=== PATIENT | female | born 1960 | race Caucasian/White ===

== ENCOUNTER 2017-11-16 05:27 | Day surgery (SDC) | payer OTHER ==
[~2017-11-16] VITALS: Ht 149.9 cm; Wt 99.8 kg
--- NOTE | ~2017-11-16 | PATH ---
[facility] [address] [place] [address] PATHOLOGY RPT PROCEDURE Name: JOSTIN MOTTA Room #: DEP [facility] M.R.#: [id number] Admission: 11/16/17 Date of : 64 Discharge: 11/16/17 Report #: [id number] Path Case #: [id number] Note [facility] Accession Number: [id number] TESTS RESULT FLAG UNITS REF RANGE LAB Clinician Provided Cytology Information No. of containers..01 Other (Miscellaneous) Source: RUL BRUSH TIP DIAGNOSIS: RUL BRUSH TIP INCONCLUSIVE. SCANT MARKEDLY ATYPICAL CELLS IDENTIFIED ALONG WITH REACTIVE BRONCHIAL EPITHELIAL CELLS AND INFLAMMATORY CELLS. Comment: Few groups of markedly atypical cells are identified. These may represent partially sampled neoplastic cells. [place]: Dr.Christin Lori Cowan. Signed out by: 02 Emi Bo MD, Pathologist NPI- [id number] Performed by: 01 Yasmine Hogue, X Ray Equipment Tester ([facility]) FLAG LEGEND: L-Low Normal,H-High Normal,LL-Alert Low,HH-Alert High <-Panic Low,>-Panic High,A-Abnormal,AA-Critical Abnormal Performed at: [address] [place] [address] Peewee Motta MD, [address] [address] Emi Bo MD, Performed at: [address], [place], [place] [id number] MD Peewee Motta MD Phone: [phone]
--- NOTE | ~2017-11-16 | PATH ---
[facility] [address] [address] PATHOLOGY RPT PROCEDURE Name: JOSTIN MOTTA Room #: [place] [facility].R.#: [id number] Admission: 11/16/17 Date of : 64 Discharge: 11/16/17 Report #: [id number] Path Case #: [id number] Note [facility] Accession Number: [id number] TESTS RESULT FLAG UNITS REF RANGE LAB Clinician Provided Cytology Information No. of containers..01 Other (Miscellaneous) Source: 01 4R NODE PS 1,6,7 DIAGNOSIS: [A] 02 4R NODE EBUS GUIDED FNA POSITIVE FOR MALIGNANT CELLS. PASS 1 AND 6 WITH REACTIVE BRONCHIAL EPITHELIAL CELLS AND BLOOD RESPECTIVELY. PASS 7 WITH MARKEDLY ATYPICAL CELLS PRESENT. NO LYMPHOID TISSUE PRESENT, PLEASE SEE COMMENT. Comment: Examination shows markedly atypical cells with necrosis. The cells show pleomorphism with large nuclei and high nuclear to cytoplasmic ratio. Immunohistochemical stains are performed on the cellblock. Reactivity is present for TTF1 and patchy reactivity is present for Ae1/Ae3 as well as p63. There is no reactivity present for the neuroendocrine marker synaptophysin. Findings may represent a completely effaced lymph node or partially sampled RUL mass sampled and submitted as [id number]. That case is sent for an expert opinion to [facility], [place], [place]. Please see separate report for details. [facility]: Dr. Debbie Cowan, Dr. Ana Guillen and Dr. Jeanie Wong. Findings are discussed with Dr. Christianson at 1:15 pm on 11/21/17. Signed out by: 02 Emi Bo MD, Pathologist NPI- [id number] Performed by: Yasmine Hogue, Web Weaver ([facility]) Gross description: 01 50ML, PINK, CLOUDY /LCS FLAG LEGEND: L-Low Normal,H-High Normal,LL-Alert Low,HH-Alert High <-Panic Low,>-Panic High,A-Abnormal,AA-Critical Abnormal Performed at: 01 [facility] [address] [place] [address] Peewee Motta MD, [address] [address] PATHOLOGY RPT PROCEDURE Name: JOSTIN MOTTA Room #: [place] [facility] Melissa#: [id number] Admission: 11/16/17 Date of : 64 Discharge: 11/16/17 Report #: [id number] Path Case #: [id number] 02 [facility] [place] [address] [facility], [place] [address] Emi Bo MD, Performed at: 01 [facility] [place] [address] [facility] [address], [place], [place] [id number] MD Peewee Motta MD Phone: [phone]
--- NOTE | ~2017-11-16 | PATH ---
[facility] [address] [address] PATHOLOGY RPT PROCEDURE Name: JOSTIN MOTTA Room #: DEP [facility] M.R.#: [id number] Admission: 11/16/17 Date of : 64 Discharge: 11/16/17 Report #: [id number] Path Case #: [id number] [facility] Accession Number: [id number] . 01 Material submitted: . PART A: BIOPSY RUL PART B: BIOPSY RUL MASS . 01 Clinical history: . LUNG MASS . 02 Diagnosis: A. 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 . B. Tissue designated as RUL mass, biopsy: - Strips of benign bronchial epithelium along with inflammatory cells in the background. - Negative for malignancy. QRQ/11/22/2017 . 02 Comment: Examination shows aggregates of tumor cells with ample cytoplasm in a few areas and associated with extensive squamous metaplasia and keratinizing pearls in the overlying bronchial epithelium. Other areas in the tumor show extensive crush artifact associated with necrosis. Immunohistochemical stains are performed on block A1, and the tumor shows membranous reactivity along with faint reactivity within the tumor cells with AE1/AE3 (perla cytokeratin). TTF-1 show reactivity in the squamous metaplastic epithelium, as well as weak reactivity within the tumor cells. P40 as well as P63 show strong nuclear reactivity within a few of the tumor cells. Synaptophysin is non-reactive. CD56 as well as NSE show weak reactivity in rare areas within the tumor cells. Mucicarmine special stain performed on block A1 shows no mucin present within the tumor cells. Overall, tumor cells are showing non-specific features and this tumor may represent a poorly differentiated squamous cell carcinoma, a large cell neuroendocrine carcinoma mixed with the squamous cell carcinoma, or a mixed small cell/combined tumor. The case is sent to [facility], [place], [place], for expert opinion. A refined diagnosis will be issued subsequent to the receipt of the same. . Co-review: Dr. Ana Guillen, Dr. Jeanie Wong and Dr. Debbie Cowan. The case was discussed with Dr. Hermelindo Christianson at 8:59 a.m. on 11/22/17. (IUV:mgr; 11/22/17) . [address] [address] PATHOLOGY RPT PROCEDURE Name: JOSTIN MOTTA Room #: DEP [facility] Chris.Junior.#: [id number] Admission: 11/16/17 Date of : 64 Discharge: 11/16/17 Report #: [id number] Path Case #: [id number] Addendum: . An addendum is issued to render a diagnosis following consultation from the [facility]. Dr. Ana Prieto rendered the following diagnosis: . 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 . Dr. Prieto stated that sections of the right upper lobe lung core biopsy show malignant neoplasm involving the lung parenchyma. In some fragments, the tumor grows into few sheets with a scant to moderate amount of pale eosinophilic to clear cytoplasm. In these areas, there is some irregularity to the nuclear membranes with slight vesicular chromatin and occasional moderately sized nucleoli. Mitotic activity is very brisk. In some other areas, the tumor cells have more scant cytoplasm leading to nuclear molding and crush artifact. This is associated with necrosis and brisk mitotic activity with apoptotic debris. . The provided immunohistochemical stains are reviewed. The malignant cells are positive for keratin AE1/AE3, and show foci of dot-like perinuclear staining. There is patchy staining for CD56 and focal weak staining for TTF-1. Rare cells express p63 and p40. The tumor cells appear negative for synaptophysin and mucicarmine. . Overall, this biopsy appears to show a poorly differentiated carcinoma based on the expression of keratin. In some areas, the cells have more vesicular chromatin with moderately sized nucleoli and a moderate amount of cytoplasm, resembling non-small cell morphology. However, we feel that there are areas associated with necrosis and crush artifact. Rare nuclear molding is prominent, associated with dark even chromatin, more in keeping with a small cell morphology. 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 Correlation with clinical and radiographic features is recommended (please see supplemental report from [facility] ([id number]). . These findings were discussed with Dr. Hermelindo Christianson on 11/29/17 at 2:30 p.m. (ADRIANE:; 11/29/17) . This case was prepared and proofread by Dr. Ana Guillen and electronically released by Dr. Saeid Grijalva. QRQ/11/29/2017 Addendum Electronically Signed by Saeid Grijalva M.D. . 02 Electronically signed: . Emi Bo MD, Pathologist NPI- [id number] [address] [address] PATHOLOGY RPT PROCEDURE Name: JOSTIN MOTTA Room #: DEP [facility].#: [id number] Admission: 11/16/17 Date of : 64 Discharge: 11/16/17 Report #: [id number] Path Case #: [id number] . 01 Gross description: . A. Received in formalin labeled "ELSA Thompson biopsy" and consists of a 0.3 x 0.2 x 0.2 cm aggregate of soft red-brown tissue which is entirely submitted as A1. . B. Received in formalin labeled "ELSA Thompson mass" and consists of scant delicate possible tissue fragments, less than 0.1 cm and aggregate. Because of the small amount received the specimen may not survive processing. The specimen is entirely stated as B1. (DAVI; 11/17/2017) JBR/JBR . 02 Pathologist provided ICD-10: C34.11, J40 . 02 CPT . 767725, 735140, V34880, Z12459, 137365 Performed at: [address], [place], [place] [id number] MD Peewee Motta MD Phone: [phone] Performed at: [address] [id number] MD Emi Bo MD Phone: [phone]
--- NOTE | ~2017-11-16 | PATH ---
[facility] [place] [address] [place] [address] PATHOLOGY RPT PROCEDURE Name: JOSTIN MOTTA Room #: DEP [facility] M.R.#: [id number] Admission: 11/16/17 Date of : 64 Discharge: 11/16/17 Report #: [id number] Path Case #: [id number] Note [facility] Accession Number: [id number] TESTS RESULT FLAG UNITS REF RANGE LAB Clinician Provided Cytology Information No. of containers..01 Other (Miscellaneous) Source: RUL BRUSHINGS DIAGNOSIS: 02 RUL BRUSHINGS INCONCLUSIVE. RARE GROUPS OF MARKEDLY ATYPICAL CELLS PRESENT ALONG WITH REACTIVE BRONCHIAL EPITHELIAL CELLS AND INFLAMMATORY CELLS. CELLULAR DEGENERATION DUE TO AIR-DRYING ARTIFACT. Comment: Scattered rare groups of markedly atypical cells are present. These may represent partially sampled neoplastic cells. Most of the cells identified on the smears are reactive bronchial epithelial cells with extensive air-drying artifact. (IUV; 11/18/17) Signed out by: 02 Emi Bo MD, Pathologist NPI- [id number] Performed by: 01 Yasmine Hogue, Staff Electrical Engineer ([facility]) FLAG LEGEND: L-Low Normal,H-High Normal,LL-Alert Low,HH-Alert High <-Panic Low,>-Panic High,A-Abnormal,AA-Critical Abnormal Performed at: [address] [place] [address] Peewee Motta MD, [address] [address] Emi Bo MD, Performed at: [address], [place], [place] [id number] MD Peewee Motta MD Phone: [phone]
--- NOTE | ~2017-11-16 | P ---
[facility] [place] [address] [address] [place] [address] PROCEDURE REPORT Name: JOSTIN NUNEZ Room #: [place] [facility] M..#: [id number] Admission: 11/16/17 Attend Phys: Hermelindo Christianson MD Discharge: 11/16/17 Date of : 64 Report #: [id number] THIS REPORT FOR: //name// CC: Henry Christianson DATE OF SERVICE: 11/16/2017 PROCEDURE: Fiberoptic bronchoscopy with endobronchial ultrasound and sampling of 4R lymph node as well as a right lung mass with 10 passes at 4R, 1 pass at the right lung mass as well as endobronchial biopsies and brushings of the right upper lobe mass that was visualized. PROCEDURE NOTATION: This was done under general endotracheal anesthesia through an 8.0 endotracheal tube. Please see anesthesia notes for sedation details. After obtaining informed consent, the patient was taken to OR room 2 where she was placed on anesthesia. Endobronchial ultrasound was advanced through the 8.0 endotracheal tube and the lymph node stations were observed in a normal fashion. Findings of lymph nodes included an 8 mm 11R, 9 mm 10R, 8 mm 11L, 8 mm 7, 20 mm 4R, 4 mm 4L. The right upper lobe mass was also somewhat visualized, but there is a vessel passing through it making sampling difficult. Only one attempt was made at this at the end of the endobronchial ultrasound portion of the procedure. Ten passes were made with a 22-gauge needle both using a 22-gauge core and standard needles. Rapid onsite pathology suggested lesional material. This mass material was sent in formalin. Endobronchial ultrasound was then removed and a standard white light bronchoscope was inserted. The airways were surveyed. The left-sided structures appeared normal with no significant anatomic variation or disease. Right-sided structures also appeared normal except for the right upper lobe, which was somewhat narrowed and particularly the apical segment which appeared to have a mass-like material inside the apical airway. Several cytologic brushes and forceps biopsies were obtained in this area in right bronchus 1. This material was sent for cytopathology and histopathology. The patient tolerated well with no noted complications with minimal blood loss. Because of the patient's severe asthma, the patient received 125 mg Solu-Medrol immediately prior to the procedure as well as 5 mL of 2% lidocaine at the end of procedure and albuterol treatment post-procedure preventing significant bronchospasm. Discussed with family in detail. <ELECTRONICALLY SIGNED> By: Hermelindo Christianson MD 11/24/17 1057 1556 0716 Hermelindo Christianson MD /nt
[~2017-11-16 05:27] MED LIST: ABILIFY15 MG PO; ACCUNEB SO1.25 MG/1 INH; ADVAIR 250-501 EACH INH; ALBUTEROL INH; ALPRAZOLAM PO; AMBIEN PO; AMPHETAMINE SAL10 MG PO; ATROVENT; BENTYL 20 MG TA20 M1 PO; BENZTROPINE MES1 MG PO; CARISOPRODOL 3350 MG PO; CARISOPRODOL PO; CINNAMON PO; CLONIDINE PO; CLONIDINE0.1 PO; D-20002000 UNIT PO; DEXILANT60 MG PO; EPIPEN 2-P0.3 MG/0.3 IM; GLUCOPHAGE850 MG PO; HUMALOG100 UNIT/1 SUBQ; LASIX 20 MG TAB20 MG PO; LEVEMIR SUBQ; MORPHINE SULFAT15 M3 PO; MUCINEX TA600 MG/TA1 PO; NYSTATIN 100,0015 G1 TOP; ONDANSETRON HCL8 M2 PO; SINGULAIR 10 MG10 M1 PO; SPIRIVA INH; TOPAMAX 25 MG T25 M1 PO; TOPROL XL25 MG PO; VICODIN PO; XANAX1 MG PO; ZANTAC 150MG T150 M1 PO; [UNRECOGNIZED DRUG - OTHER] SC
[2017-11-16 11:34] LABS: HEMATOCRIT 34.4 % (37.0-47.0); HEMOGLOBIN 10.7 gm/dL (12.0-15.0); MCH 24.4 pg (26.0-34.0); MCHC 31.1 g/dL (28.0-37.0); MCV 78.4 fL (80.0-100.0); RBC 4.38 mil/uL (4.20-5.00); RDW 15.4 % (10.5-14.5); WBC 11.6 thou/uL (4.0-11.0)
[2017-11-16 11:57] LABS: PROTIME 9.9 Seconds (9.3-11.4)
[2017-11-16 12:17] VITALS: BP 134/75
== END 2017-11-16 16:53 | disposition home or self-care (01) ==
LOC: OR 05:27 → TBA 05:27 → OR 13:21
PROVIDERS: Internal Medicine Pulmonary Disease
DX: C34.11 Malignant neoplasm of upper lobe, right bronchus or lung (principal); J40 Bronchitis, not specified as acute or chronic; J44.9 Chronic obstructive pulmonary disease, unspecified; I10 Essential (primary) hypertension; E11.9 Type 2 diabetes mellitus without complications; E78.5 Hyperlipidemia, unspecified; K21.9 Gastro-esophageal reflux disease without esophagitis; G43.909 Migraine, unspecified, not intractable, without status migrainosus; G47.33 Obstructive sleep apnea (adult) (pediatric); M19.90 Unspecified osteoarthritis, unspecified site; F41.9 Anxiety disorder, unspecified; F32.9 Major depressive disorder, single episode, unspecified; Z88.0 Allergy status to penicillin; Z87.891 Personal history of nicotine dependence; Z79.899 Other long term (current) drug therapy; Z85.118 Personal history of other malignant neoplasm of bronchus and lung; Z90.710 Acquired absence of both cervix and uterus; Z98.890 Other specified postprocedural states; Z79.4 Long term (current) use of insulin
CPT/HCPCS: 62110; 62900; 64029; 70005